=== PATIENT | female | born 1975 | race Caucasian/White ===

== ENCOUNTER → 2016-10-16 | Outpatient (CLI) | payer OTHER ==
[~2016-10-16] MED LIST: BACITRACIN--O.0.9 GM TP; BENADRYL-DPS25 MG PO; BETADINE30 ML TP; COLACE-DPS100 MG PO; DESYREL DPS100 MG PO; DURAGESIC DPS100 MCG TD; FENTANYL1 EAC1 TP; OXYCODONE HCL30 MG PO; SUPER B COMPLE150 MG PO; TYLENOL DPS325 MG PO; VALIUM-DPS5 MG PO; [UNRECOGNIZED DRUG - OTHER] TD
== END | disposition home or self-care (01) ==
LOC: PTH.S 10:30
DX: Z01.812 Encounter for preprocedural laboratory examination (principal)

== ENCOUNTER 2016-10-22 06:56 | Observation (INO) | payer OTHER ==
[~2016-10-22] VITALS: Ht 172.7 cm; Wt 63.6 kg
--- NOTE | ~2016-10-22 | DS ---
ADMIT: 10/22/2016 RM/LOC: [address] [facility] MR#: [id number] [facility]#: [id number] [id number] [facility] [address] [place], [place] [address] SHARON SWENSON [address] [place] [id number] Discharge Summary SEX: F AGE: 40 : 1975 ADMISSION DATE: 10/22/2016 DISCHARGE DATE: 10/25/2016 REASON FOR ADMISSION: 1. Cervical stenosis. 2. Right arm weakness. 3. Paresthesia. 4. Cervical disc herniation with radiculopathy. PROCEDURE: Anterior cervical diskectomy and fusion, C3 through 5. HOSPITAL COURSE: Ms. Swenson tolerated her procedure well. Postoperatively, she was admitted to the Med/Surg floor for monitoring and care. She was having quite a bit of pain and a morphine [employer]ING TE[employer]ER was started. Postop day number one, she was awake and alert. She was a little bit somnolent. Her vital signs were stable. She was moving all extremities x4 with 5/5 strength. Her dressing was clean, dry, and intact. Her TABATHA drain had a scant amount of drainage; therefore, was discontinued without difficulty. She did work with Physical Therapy and Occupational Therapy. Her Valium was adjusted to q.6 hours instead of q.8 hours. Postop day number two, her vital signs were stable. She was awake and alert. She was moving all extremities x4 with 5/5 strength. Her incision was clean, dry, and intact. She was still verbalizing some significant pain. Her Duragesic patch was increased by 50 mcg to a total of 150 mcg to be changed every 72 hours. Her morphine [employer]ING TEACHER was discontinued. She continued to work with Physical Therapy and Occupational Therapy. Postop day number three, she awake and alert. She was afebrile. Her vital signs were stable. She was moving all extremities x4. Her incision was clean, dry, and intact. She did report her pain was a little improved with the increase in the Duragesic patch. She was ambulating, urinating, and defecating per her norm and was requesting discharge home. DISCHARGE CONDITION: Good. MEDICATIONS: 1. Colace 100 mg p.o. b.i.d. 2. Bacitracin ointment to incision q.p.m. x14 days. 3. Duragesic 50 mcg patch topically, change q.72 hours. 4. Benadryl 25 mg p.o. q.6 hours p.r.n. 5. Tylenol 650 mg p.o. q.4 hours p.r.n. 6. Valium 5 mg 1-2 p.o. q.6 hours p.r.n. 7. Oxycodone 30 mg 1 tab q.4-6 hours p.r.n., maximum of five tablets a day. 8. Fentanyl patch 100 mcg, change every 72 hours. 9. Trazodone 100 mg at bedtime. 10.Estradiol patch 0.075 mg, change every seven days. 11.Super B complex daily. 12.Betadine to incision q.a.m. x14 days. DISCHARGE INSTRUCTIONS: (Per Dr. Tee) ADMIT: 10/22/2016 RM/LOC: [address] [facility] MR#: [id number] [address] [address] MESSI SHARON D [address] [place] [address] Discharge Summary SEX: F AGE: 40 : 1975 She can have a regular diet. She may shower. She should not take any tub baths. She should pat her incision dry. She should not lift anything greater than 15 pounds. She should not take any NSAIDs. She should not drive until she is seen in clinic. She will call with any questions or concerns including neurological worsening, signs or symptoms of infection, or any other issues. FOLLOWUP: She will follow up in clinic with Yasmin in two weeks. DISPOSITION: She was discharged home. Total [id number]-[id number] time for the discharge planning and care coordination was 30 minutes. Yasmin Tilley APRN / Michael Tee MD / gauri JOB #: [id number] CC: Michael Tee MD, Attending Physician Jose Tee MD, Family Physician
[2016-10-26] MEDS ORDERED: DURAGESIC DPS100 MCG TD (18:56)
[2016-10-26] MEDS ORDERED: OXYCODONE HCL30 MG PO (18:56)
[2016-10-26] MEDS ORDERED: DESYREL DPS100 MG PO (18:56)
[2016-10-26] MEDS ORDERED: SUPER B COMPLE150 MG PO (18:57)
[2016-10-26] MEDS ORDERED: COLACE-DPS100 MG PO (18:57)
[2016-10-26] MEDS ORDERED: FENTANYL1 EAC1 TP (18:57)
[2016-10-26] MEDS ORDERED: [UNRECOGNIZED DRUG - OTHER] TD (18:58)
[2016-10-26] MEDS ORDERED: BACITRACIN--O.0.9 GM TP (18:58)
[2016-10-26] MEDS ORDERED: TYLENOL DPS325 MG PO (18:59)
[2016-10-26] MEDS ORDERED: BETADINE30 ML TP (18:59)
[2016-10-26] MEDS ORDERED: VALIUM-DPS5 MG PO (18:59)
[2016-10-26] MEDS ORDERED: BENADRYL-DPS25 MG PO (18:59)
--- NOTE | 2016-10-28 09:52 | OR ---
ADMIT: 10/22/2016 RM/LOC: [address] [facility] MR#: [id number] [address] [address] SHARON SWENSON [address] [place] [id number] Operative/Delivery Room Report SEX: F AGE: 40 : 1975 SURGERY DATE: 10/22/2016 SURGEON: Michael Tee MD PREOPERATIVE DIAGNOSIS: Cervical herniated nucleus pulposus, 3-4 and 4-5. POSTOP DIAGNOSIS: Cervical herniated nucleus pulposus, 3-4 and 4-5. PROCEDURES: 1. Wide cervical diskectomy at 3-4 and 4-5 for decompression of the thecal sac as well as neural foramen bilaterally. 2. Arthrodesis, cervical 3-4 and 4-5 from anterior approach. 3. Placement of structural allograft, cervical 3-4 and 4-5. 4. Placement of anterior DePuy Synthes instrumentation, cervical 3, 4, and 5. 5. Intraoperative fluoroscopy with physician interpretation of film. STAFFING EXECUTIVE: Yasmin Tilley APRN DESCRIPTION OF PROCEDURE: After gaining informed consent, the patient was taken to operative theater, placed under general endotracheal anesthesia in supine position. A time-out was utilized to ascertain the correct site and side of surgery as well as other pertinent patient historical information. Counts were obtained at the beginning and end of case with no change betwixt the two. Antibiotics were given before 1-hour of incision. Fluoroscope was brought into the field and the cervical spine was evaluated. An incision was fashioned horizontally in the anterior neck, this was then taken down through the paratracheal and paraesophageal groove to the anterior spinal column. The 4-5 level had a very large osteophyte, this was confirmed as the 4-5 level on fluoroscopy and attention was then turned to taking up the longus coli from medial to lateral and placing a Fruit Tester retractor system. The patient was under 10 pounds of traction as the Workman-Wells tongs had been placed preoperatively, those were taken down at the time of instrumentation. The incision was fashioned in the anterior disk area 3-4 and 4-5 and then various curettes, rongeurs, and a high-speed drill was used to resect the disk material as well as the superior and inferior endplates taking this back to some bleeding bone. Once this was completed, the posterior longitudinal ligament was resected, resecting out all the way to the neural foramen, being able to sound out the neural foramen at 3-4 and 4-5. Most of the disk resected was soft disk in this case. Once everything was widely decompressed, attention was turned to arthrodesis. Appropriately sized structural allograft spacers were then tapped into place very cautiously. The anterior spinal column was decorticated at the site of the screw holes and then appropriate-sized plate was brought into the field. The 12 mm vancomycin powder-coated screws were then placed into the plate and they were torqued to appropriate settings. The TABATHA drain was daylighted out, pristine hemostasis was obtained and attention was turned to closure. The ADMIT: 10/22/2016 RM/LOC: [address] [facility] MR#: [id number] [address] [address] SHARON SWENSON [address] [place] [id number] Operative/Delivery Room Report SEX: F AGE: 40 : 1975 wound was closed with simple inverted interrupted 2-0 Vicryl in the hypodermic tissue and subcuticular 3-0 Stratafix on the skin with Steri-Strips over that. Ms. Tilley assisted with suction, retraction, and closure at the end of the case. COMPLICATIONS: None. ESTIMATED BLOOD LOSS: Charted. SPECIMEN: Disks. DISPOSITION: Extubated and taken to postanesthesia care unit. Michael Tee MD/ osmar JOB #: [id number] CC: Michael Tee, Attending Physician Jose Tee, Family Physician
== END 2016-10-25 13:00 | disposition home or self-care (01) ==
LOC: 5MS 06:56 → WOR 06:56 → 5MS 11:02
PROVIDERS: ADMIT Neurological Surgery
PROC: 0RG20K0 Fusion of 2 or more Cervical Vertebral Joints with Nonautologous Tissue Substitute, Anterior Approach, Anterior Column, Open Approach (ICD-10-PCS; principal; 2016-10-22)
PROC: 0RB30ZZ Excision of Cervical Vertebral Disc, Open Approach (ICD-10-PCS; principal; 2016-10-22)
DX: M50.11 Cervical disc disorder with radiculopathy, high cervical region (principal); M50.121 Cervical disc disorder at C4-C5 level with radiculopathy; M48.02 Spinal stenosis, cervical region; M79.7 Fibromyalgia; Z88.8 Allergy status to other drugs, medicaments and biological substances; Z79.899 Other long term (current) drug therapy; Z90.710 Acquired absence of both cervix and uterus; Z98.890 Other specified postprocedural states